=== PATIENT | female | born 1950 | race Caucasian/White ===

== ENCOUNTER → 2017-01-03 | Outpatient (CLI) | payer MEDICARE ==
[2017-01-03 08:56] LABS: Basophils % (A) 0 %; CH 31.4; CHCM 32.1; Eosinophils % (A) 0 %; HCT 37.2 % (34.0-46.0); HDW 2.38; HGB 11.9 gm/dL (11.4-16.0); Luc # (Auto) 0.06; Luc % (Auto) 1; Lymphocytes # (A) 0.8 k/uL (1.0-4.8); Lymphocytes % (A) 18 %; MCH 31.2 pg (25.0-35.0); MCHC 31.9 g/dL (31.0-37.0); MCV 98.1 fL (80.0-100.0); Monocytes # (A) 0.2 k/uL (0-1.0); Monocytes % (A) 4 %; Neutrophils # (A) 3.6 k/uL (1.3-7.7); Neutrophils % (A) 76 %; RDW 13.8 % (11.5-15.5); WBC 4.7 k/uL (3.8-10.6); WBC (Perox) 4.74
--- NOTE | 2017-01-03 09:01 | CT ---
EXAMINATION TYPE: CT chest wo con DATE OF EXAM: 01/03/2017 8:26 AM COMPARISON: CTA chest September 24, 2012 HISTORY: Difficulty breathing CT DLP: 998 mGycm. Automated Exposure Control for Dose Reduction was Utilized. TECHNIQUE: CT scan of the thorax is performed without IV contrast. High resolution protocol with 10 mm sequences obtained in supine and prone technique FINDINGS: LUNGS: The lungs are predominantly clear, there is no concerning parenchymal mass or greater than 1 c m nodule identified. Some linear scarring in the left lung base is present. No significant periphera l reticulation or fibrosis is seen. No honeycombing is evident. There is no pleural effusion or pneum othorax seen bilaterally. No bronchiectasis is seen. MEDIASTINUM: Lack of IV contrast is noted to limit evaluation for mediastinal and especially hilar ad enopathy. There are no definitive greater than 1 cm hilar or mediastinal lymph nodes. No pericardia l effusion is seen. Heart size is mildly enlarged. There is mild calcified atherosclerotic change in the aortic arch. OTHER: Visualized liver is hypodense consistent with fatty infiltration. There is multilevel spurring in the thoracic spine present. IMPRESSION: No significant acute or chronic pulmonary process.
== END | disposition home or self-care (01) ==
LOC: RADCTMAIN 07:49
PROVIDERS: ATTEND Internal Medicine Critical Care Medicine
DX: J84.9 Interstitial pulmonary disease, unspecified (principal)
CPT/HCPCS: 71250; 82785; 85025; 86160; 86161

== ENCOUNTER → 2018-08-15 | Outpatient (CLI) | payer MEDICARE ==
--- NOTE | 2018-08-16 11:18 | BD ---
EXAMINATION TYPE: Axial Bone Density DATE OF EXAM: 08/15/2018 COMPARISON: Prior DEXA bone scan July 14, 2015 CLINICAL HISTORY: Disorder of bone per order. Height: 63 Weight: 238.4 FRAX RISK QUESTIONS: Alcohol (3 or more units per day): no Family History (Parent hip fracture): no Glucocorticoids (More than 3mos): no (Ex: prednisone, prednisolone, methylprednisolone, dexamethasone, and hydrocortisone). History of Fracture in Adulthood: no Secondary Osteoporosis: 1. Type 1 Diabetes: no 2. Hyperthyroidism: no 3. Menopause before 45: no 4. Malnutrition: no 5. Chronic liver disease: no Rheumatoid Arthritis: no Current Tobacco Use: no RISK FACTORS HISTORY OF: Family History of Osteoporosis: no Active: sometimes Diet low in dairy products/other sources of calcium: no Postmenopausal woman: age55 Lost more than 2 inches in height since high school: no MEDICATIONS: Thyroid Medications: thyroid, bp meds, vitamins, tumeric How Lon years Additional History: EXAM MEASUREMENTS: Bone mineral densitometry was performed using the [employer] System. Bone mineral density as measured about the Lumbar spine is: ----- L1-L4(G/cm2): 1.360 T Score Values are as follows: ----- L2: 1.6 ----- L3: 1.6 ----- L4: 1.0 ----- L1-L4: 1.5 Bone mineral density has: decreased -3.3 % since study of: 07.14.2015 Bone mineral density about the R hip (g/cm2): 1.273 Bone mineral density about the L hip (g/cm2): 1.267 T Score values are as follows: -----R Neck: 1.7 -----L Neck: 1.7 -----R Total: 3.5 -----L Total: 3.5 Bone mineral density has: decreased -0.3 % since study of: 07.14.2015 IMPRESSION: Normal (Values between +1 and -1 indicate normal bone mass). Consider repeating this study in 5 year s or sooner if there is some new clinical indication. NOTE: T-SCORE=SD OF THE YOUNG ADULT MEAN.
--- NOTE | 2018-08-19 14:49 | MM ---
Reason for exam: screening (asymptomatic). Last mammogram was performed 3 years and 1 month ago. History: Patient is postmenopausal and had first child at age 33. Family history of breast cancer in cousin at age 52. MG Screening Mammo w CAD Bilateral CC and MLO view(s) were taken. Prior study comparison: July 14, 2015, bilateral MG screening mammo w CAD. December 01, 2010, bilateral digital screening mammo w/CAD. There are scattered fibroglandular densities. No significant changes when compared with prior studies. ASSESSMENT: Negative, BI-RAD 1 RECOMMENDATION: Routine screening mammogram of both breasts in 1 year.
== END ==
LOC: RADMAMWWP 14:22
PROVIDERS: ATTEND Family Medicine
DX: Z12.31 Encounter for screening mammogram for malignant neoplasm of breast (principal); M89.9 Disorder of bone, unspecified
CPT/HCPCS: 77067; 77080

== ENCOUNTER → 2019-08-16 | Outpatient (CLI) | payer MEDICARE ==
--- NOTE | 2019-08-16 14:10 | MM ---
Reason for exam: screening (asymptomatic). Last mammogram was performed 1 year ago. History: Patient is postmenopausal and had first child at age 33. Family history of breast cancer in cousin at age 52. Physical Findings: A clinical breast exam by your physician is recommended on an annual basis and results should be correlated with mammographic findings. MG Screening Mammo w CAD Bilateral CC and MLO view(s) were taken. Prior study comparison: August 15, 2018, bilateral MG screening mammo w CAD. July 14, 2015, bilateral MG screening mammo w CAD. There are scattered fibroglandular densities. There are benign appearing round vascular calcifications bilaterally. There is no discrete abnormality. ASSESSMENT: Benign, BI-RAD 2 RECOMMENDATION: Routine screening mammogram of both breasts in 1 year.
== END | disposition home or self-care (01) ==
LOC: RADMAMWWP 09:51
PROVIDERS: ATTEND Family Medicine
DX: Z12.31 Encounter for screening mammogram for malignant neoplasm of breast (principal)
CPT/HCPCS: 77067

== ENCOUNTER → 2020-03-05 | Outpatient (CLI) | payer MEDICARE ==
[2020-03-05 14:49] LABS: Basophils % (A) 1 %; Eosinophils # (A) 0.1 k/uL (0-0.7); Eosinophils % (A) 3 %; HCT 37.4 % (34.0-46.0); HGB 11.6 gm/dL (11.4-16.0); Lymphocytes # (A) 1.4 k/uL (1.0-4.8); Lymphocytes % (A) 26 %; MCH 31.3 pg (25.0-35.0); MCHC 31.1 g/dL (31.0-37.0); MCV 100.7 fL (80.0-100.0); Macrocytosis Slight; Mean Platelet Volume 9.1; Monocytes # (A) 0.4 k/uL (0-1.0); Monocytes % (A) 7 %; Neutrophils # (A) 3.4 k/uL (1.3-7.7); Neutrophils % (A) 63 %; Platelet Count 193 k/uL (150-450); RBC 3.71 m/uL (3.80-5.40); WBC 5.5 k/uL (3.8-10.6)
[2020-03-05 17:52] LABS: INR 0.97 (0.90-1.11); Partial Thromboplastin Time 26.7 sec (24.7-29.9); Prothrombin Time 10.4 sec (9.9-11.9)
[2020-03-05 18:49] LABS: African American GFR (CKD) 44.3 (60.0-200.0); Albumin 4.4 g/dL (3.80-4.90); Albumin/Globulin Ratio 1.91 (1.60-3.17); Anion Gap 10.9 mmol/L (4.00-12.00); BUN/Creat Ratio 17.86 Ratio (12.00-20.00); Carbon Dioxide 28.1 mmol/L (21.6-31.8); Globulin 2.3 g/dL (1.6-3.3); Non-African American GFR(CKD) 38.2 (60.0-200.0); Potassium 4.6 mmol/L (3.5-5.5); Total Bilirubin 0.5 mg/dL (0.3-1.2); Total Protein 6.7 g/dL (6.2-8.2)
== END | disposition home or self-care (01) ==
LOC: LABWHC1 13:54
PROVIDERS: ATTEND Family Medicine
DX: I12.9 Hypertensive chronic kidney disease with stage 1 through stage 4 chronic kidney disease, or unspecified chronic kidney disease (principal); D63.1 Anemia in chronic kidney disease; N18.3 Chronic kidney disease, stage 3 (moderate)
CPT/HCPCS: 36415; 80053; 85025; 85610; 85730; 93005

== ENCOUNTER → 2020-10-02 | Outpatient (CLI) | payer MEDICARE ==
--- NOTE | 2020-10-06 09:01 | MM ---
Reason for exam: screening (asymptomatic). Last mammogram was performed 1 year and 2 months ago. History: Patient is postmenopausal and had first child at age 33. Family history of breast cancer in cousin at age 52. Took hormonal contraceptives for 20 years. Physical Findings: A clinical breast exam by your physician is recommended on an annual basis and results should be correlated with mammographic findings. MG Screening Mammo w CAD Bilateral CC and MLO view(s) were taken. Prior study comparison: August 16, 2019, bilateral MG screening mammo w CAD. August 15, 2018, bilateral MG screening mammo w CAD. There are scattered fibroglandular densities. Vascular calcifications on the right breast. No significant changes when compared with prior studies. ASSESSMENT: Benign, BI-RAD 2 RECOMMENDATION: Routine screening mammogram of both breasts in 1 year.
== END | disposition home or self-care (01) ==
LOC: RADMAMWWP 13:26
PROVIDERS: ATTEND Family Medicine
DX: Z12.31 Encounter for screening mammogram for malignant neoplasm of breast (principal)
CPT/HCPCS: 77067

== ENCOUNTER → 2021-04-15 | Outpatient (CLI) | payer MEDICARE ==
[2021-04-15 11:20] LABS: HCT 37.9 % (34.0-46.0); HGB 12.9 gm/dL (11.4-16.0); MCH 34.3 pg (25.0-35.0); Macrocytosis Slight; Mean Platelet Volume 9.2; Platelet Count 149 k/uL (150-450); RBC 3.75 m/uL (3.80-5.40); RDW 13.6 % (11.5-15.5); WBC 5.9 k/uL (3.8-10.6)
[2021-04-15 11:31] LABS: Partial Thromboplastin Time 23.5 sec (22.0-30.0); Prothrombin Time 10.6 sec (9.0-12.0)
[2021-04-15 11:33] LABS: Albumin 4.1 g/dL (3.5-5.0); Calcium 10.1 mg/dL (8.4-10.2); Potassium 5.3 mmol/L (3.5-5.1); Total Bilirubin 0.5 mg/dL (0.2-1.3); Total Protein 7.1 g/dL (6.3-8.2)
[2021-04-15 11:38] LABS: Appearance,Urine Cloudy (Clear); Bacteria,Urine Few /hpf; Bilirubin,Urine Negative (Negative); Blood,Urine Negative (Negative); Color,Urine Light Yellow; Glucose,Urine (UA) 1+ (Negative); Ketones,Urine Negative (Negative); Leukocyte Esterase,Urine Negative (Negative); Mucus,Urine Rare /hpf; Nitrite,Urine Negative (Negative); Protein,Urine Negative (Negative); Specific Gravity,Urine 1.011 (1.001-1.035); Squamous Epithelial Cell,Urine 2 /hpf (0-4); Urobilinogen,Urine <2.0 mg/dL (<2.0); WBC,Urine 4 /hpf (0-5)
== END | disposition home or self-care (01) ==
LOC: LABPAT 10:17
PROVIDERS: ATTEND Orthopaedic Surgery
DX: Z01.812 Encounter for preprocedural laboratory examination (principal); Z01.810 Encounter for preprocedural cardiovascular examination
CPT/HCPCS: 80053; 81001; 85027; 85610; 85730; 87070; 93005

== ENCOUNTER 2021-05-03 05:34 | Day surgery (SDC) | payer MEDICARE ==
[2021-04-29 10:34] VITALS: BMI 47.5
[~2021-05-03 05:34] MED LIST: ACETAMINOPHEN TAB 500 MG TAB PO PRN; GABAPENTIN 300 MG CAP PO PRN; TRANEXAMIC ACID 1,000 MG in SODIUM CHLORIDE 0.9% 100 ML IVPB PRN; VANCOMYCIN 1,750 MG in SODIUM CHLORIDE 0.9% 500 ML 500 ML IVPB PRN
[2021-05-03] MEDS ORDERED: DEXAMETHASONE SOD PHOSPHATE 4 MG/ML 1 ML VIAL IV ONE (05:50)
[2021-05-03] MEDS ORDERED: LIDOCAINE 1% (10MG/ML) FOR IV START INTRADERMA PRN (05:50)
[2021-05-03] MEDS ORDERED: MIDAZOLAM 2 MG/2 ML VIAL IV PRN (05:50)
[2021-05-03] MEDS ORDERED: ONDANSETRON 4 MG/2 ML VIAL IVP ONE (05:50)
[2021-05-03 06:18] LABS: Glucose,Whole Blood 107 mg/dL (75-99)
[2021-05-03] MEDS: LACTATED RINGERS 1,000 ML IV SCH ×2 (06:45→07:06)
[2021-05-03] MEDS ORDERED: HYDROmorphone 0.5 MG/0.5 ML SYRINGE IVP PRN ×2 (07:03)
[2021-05-03] MEDS ORDERED: ONDANSETRON 4 MG/2 ML VIAL IVP PRN (07:03)
[2021-05-03] MEDS ORDERED: HYDROmorphone 0.2 MG/1 ML SYRINGE IVP PRN (07:03)
[2021-05-03] MEDS ORDERED: NALOXONE 0.4 MG/ML 1 ML VIAL IV PRN (07:03)
[2021-05-03] MEDS ORDERED: LIDOCAINE 1% INJ 10MG/ML (20 ML MDV) ONE (07:04)
[2021-05-03] MEDS ORDERED: KETAMINE 10 MG/ML 20 ML VIAL ONE (07:04)
[2021-05-03] MEDS ORDERED: SODIUM CHLORIDE 0.9% 100 ML BAG ONE (07:04)
[2021-05-03] MEDS ORDERED: LABETALOL 5 MG/ML VIAL MDV ONE (07:04)
[2021-05-03] MEDS ORDERED: TRANEXAMIC ACID 1,000 MG/10 ML VIAL ONE (07:04)
[2021-05-03] MEDS ORDERED: MIDAZOLAM 2 MG/2 ML VIAL ONE (07:04)
[2021-05-03] MEDS ORDERED: SUCCINYLCHOLINE CHLORIDE 100 MG/5 ML SYR IV ONE (07:04)
[2021-05-03] MEDS ORDERED: ROPIVACAINE 5 MG/ML 30 ML VIAL ONE (07:04)
[2021-05-03] MEDS ORDERED: fentaNYL (PF) 50 MCG/ML 2 ML AMP ONE (07:04)
[2021-05-03] MEDS ORDERED: PROPOFOL 10 MG/ML 20 ML VIAL IV ONE (07:04)
[2021-05-03] MEDS ORDERED: CLINDAMYCIN 900 MG in DEXTROSE 5% IN WATER 50 ML IVPB SCH ×2 (07:15)
[2021-05-03] MEDS ORDERED: SODIUM CHLORIDE 0.9% 1,000 ML IV SCH (07:15)
--- NOTE | 2021-05-03 07:56 | P.ANPRN ---
Procedure Note - Anesthesia - Nerve Block Performed Left Adductor Canal Infusion Time Out Performed: Yes Date of Procedure: 05/03/21 Procedure Start Time: 06:34 Procedure Stop Time: 06:54 Location of Patient: PreOp Indication: Acute Post-Operative Pain, Dx/Pain Location, Requested by Surgeon Specifically requested for management of pain by : Edi Smith Sedation Type: Sedate with meaningful contact maintained Preparation: Sterile Prep, Sterile Dressing Position: Supine Catheter Depth at Skin (cm): 7 Catheter: Indwelling Needle Types: Pajunk Needle Gauge: 21 Ultrasound used to visualize needle placement: Yes Ultrasound used to observe medication spread: Yes Injectate: 0.5% Ropivacaine (see comment for volume) Blood Aspirated: No Pain Paresthesia on Injection Noted: No Resistance on Injection: Normal Image Stored and Saved: Yes Events: Uneventful and Well Tolerated (0.5% ropivacaine 20 cc)
--- NOTE | 2021-05-03 07:57 | P.ANPRN ---
Procedure Note - Anesthesia - Nerve Block Performed Left iPack Single Time Out Performed: Yes Date of Procedure: 05/03/21 Procedure Start Time: 06:55 Procedure Stop Time: 06:59 Location of Patient: PreOp Indication: Acute Post-Operative Pain, Dx/Pain Location, Requested by Surgeon Specifically requested for management of pain by DrMagdalene: Edi Smith Sedation Type: Sedate with meaningful contact maintained Preparation: Sterile Prep Position: Supine Catheter: None Needle Types: Ohm Universe Needle Gauge: 21 Ultrasound used to visualize needle placement: Yes Ultrasound used to observe medication spread: Yes Injectate: 0.5% Ropivacaine (see comment for volume) Blood Aspirated: No Pain Paresthesia on Injection Noted: No Resistance on Injection: Normal Image Stored and Saved: Yes Events: Uneventful and Well Tolerated (0.5% ropivacaine 10cc)
--- NOTE | 2021-05-03 08:30 | P.OP ---
Date of Procedure: 05/03/21 Preoperative Diagnosis: Severe osteoarthritis left knee Postoperative Diagnosis: Severe osteoarthritis left knee Procedure(s) Performed: Left total knee arthroplasty Implants: Márquez [employer] Nephew Journey II CR Oxinium cruciate retaining femoral component size 5, left Már[employer] Journey nonporous tibial baseplate size 3, left Már[employer] Journey II, XLPE Deep Dished articular insert, size 9 mm, Size 3- 4, left [employer]ár[employer] Journey Loren II resurfacing patellar component, oval, 29 mm All components were cemented using Palacos R bone cement The articulation is Oxinium on polyethylene Anesthesia: DORENE Surgeon: Tex Smith Rock Room Worker #1: Joleen Andersen Estimated Blood Loss (ml): 50 Pathology: other (Bone and cartilage) Condition: stable Disposition: PACU Indications for Procedure: After failure of conservative treatment we discussed the surgical and nonsurgical treatment options at length. Patient wishes to proceed with a total knee arthroplasty. Complications specific to this procedure were discussed at length, including but not limited to infection, bleeding, stiffness, and nerve injury. Covid-19 was also discussed at length with the patient, and they are aware of the current policies and procedures. The patient was given the option of delaying surgery, but they elect to proceed knowing these risks. Patient is aware of all these complications and informed consent was obtained Operative Findings: The operative findings are consistent with severe osteoarthritis the left knee Description of Procedure: Patient was seen in the preoperative area and the consent was reviewed and the operative site was marked with a skin marker. The patient verified the procedure and the operative site. An adductor canal pain catheter and an iPACK block was placed by anesthesia in the preoperative area. The patient was then brought to the operating room and given preoperative antibiotics intravenously. A gram of transexamic acid was given intravenously. A general anesthetic was administered by the anesthesia department. A tourniquet was placed on the upper thigh and the lower extremity was prepped with chlorhexidine and draped in usual sterile fashion. A universal timeout was then performed which confirmed the patient's name, surgical site, ALLERGIES, and consent. The lower extremity was then exsanguinated and tourniquet was inflated to 300 mmHg. A standard anterior midline approach to the knee was performed. The skin and subcutaneous tissue were sharply dissected down to the patellar tendon. A medial parapatellar arthrotomy was then performed. The knee was then extended, the patellar was everted, and the knee was again flexed. The infra-patellar fat pad was removed in order to enhance exposure. The anterior horns of both menisci were excised, and a release was performed to the posterior medial aspect of the knee. On gross visual inspection, there was complete loss of articular cartilage in the medial and patellofemoral joint spaces. There was also significant cartilage damage in the lateral compartment. There were multiple periarticular osteophytes globally about the knee which were then removed with a Ronguer. The femoral canal was then opened with the 9.5 mm intramedullary drill. The 8 mm intramedullary leslie was then inserted into the femoral canal with the distal femoral cutting guide set for 5 of valgus. The distal femoral cutting block was then pinned in place. The intramedullary leslie was then removed, and the distal femur was then cut. The cutting block was then removed and the cut was checked for symmetry. The resected bone was then measured to confirm the appropriate distal femoral resection. Next, the sizing guide was then placed and set for 3 external rotation based off of the epicondylar axis and Whitesides line. Pins were then placed and the drill holes, and the femur was sized with the sizing stylus. The pins were then removed, and the sizing guide was then removed. The spikes of the femoral block was then placed into the predrilled holes, and malleted into place. Two 45 mm pins were then placed into the fixation holes on the cutting block. An devon wing was then used to ensure there would be no notching with the anterior cut. The anterior condyles were cut without notching. The anterior chord cut was then performed, followed by the posterior cut, posterior chamfer cut, and the anterior chamfer cut. The collateral ligaments were protected during the entire process. The cutting block was then removed. Any remaining bone and osteophytes were removed from the femur with a Rominger. The femoral canal was plugged with autologous bone. Attention was then directed to the tibia. The remaining ACL was removed with a Ronguer, and the tibia was then gently subluxed forward with a large bent knee retractor. Any remaining menisci were excised. The posterior lateral corner was cauterized in order to coagulate the lateral geniculate artery. The extra medullary tibial cutting guide was then placed, set for the appropriate rotation, slope, and depth of resection. The proximal tibia cutting guide was then pinned in place. Proximal tibia was then cut and sized. The femoral trial was placed. A narrow saw blade was then used to remove the anterior intracondylar femoral bone. The CR notch trial was then placed. The tibial trial was placed with the appropriate-sized insert. The knee was able to fully extend and flex to 130 and was stable throughout all range of motion. The knee was then extended and the patella was everted. Patella was then measured, and then using an osteotomy guide, the patella was cut at the appropriate level. The patella was then measured and drilled and the patella trial was then placed. The knee was then taken through range of motion with the patella trial and the patella tracked normally using the no thumbs technique.. The knee was then extended patella trial was then removed and the patella was everted. Knee was then flexed and lug holes were drilled through the femoral trial and the femoral trial was then removed. The tibial was then re-exposed, and the tibial broach guide was then pinned in place after it was set for the appropriate rotation to allow for the most coverage without overhang. The tibia was then reamed and broached. The cut surfaces of bone were then irrigated with pulsatile lavage. The knee was also irrigated with Irrisept solution. The components were then opened, the cement was mixed, and the components were then cemented in place. The cement was allowed to harden with the knee in full extension. After the cemented hardened. The tourniquet was released, and hemostasis was obtained. A second gram of transexamic acid was given intravenously. The knee was again irrigated. The knee was again taken through range of motion and found to be stable throughout all range of motion of 0-130, and the patella tracked normally. The fascia was then closed with 0 Vicryl followed by #2 strata fix suture. The subcutaneous tissue was closed with 3-0 Vicryl and 3-0 strata fix. Exofin glue was used for the skin and placed with the knee in flexion. After the glue had dried, and Optafoam silver impregnated dressing was applied. The patient was then transferred to recovery room in stable condition. The property management assistant MICHAEL Last was required due the complexity surgery and the need for a skilled surgical device sales representative. She assisted in positioning, draping, retraction, and closure of the wound.
[2021-05-03] MEDS: HYDROmorphone 0.5 MG/0.5 ML SYRINGE IVP PRN ×3 (09:03→09:34)
[2021-05-03] MEDS ORDERED: ROPIVACAINE 0.2%-NS ON-Q PUMP 2 MG/ML EACH MISCELLANE ONE (09:10)
[2021-05-03 09:16] VITALS: TEMP 98.4
--- NOTE | 2021-05-03 09:21 | XR ---
EXAMINATION TYPE: XR knee limited LT DATE OF EXAM: 05/03/2021 CLINICAL HISTORY: Left knee pain and arthritis status post total knee replacement. TECHNIQUE: Portable AP and crosstable lateral views of the left knee are obtained immediately postop eratively. COMPARISON: None FINDINGS: Metallic hardware from total left knee arthroplasty is seen and appears satisfactory in al ignment and position. There is evidence of recent surgery with diffuse subcutaneous gas and soft tis kitty swelling noted. IMPRESSION: METALLIC HARDWARE FROM TOTAL LEFT KNEE ARTHROPLASTY IS SATISFACTORY IN ALIGNMENT.
[2021-05-03] MEDS ORDERED: ROPIVACAINE 0.2%-NS ON-Q PUMP 1,090 MG, EMPTY PAIN BALL 1 EACH MISCELLANE PRN (09:25)
[2021-05-03] MEDS ORDERED: HYDROcodone/APAP 7.5-325MG 1 EACH TAB PO PRN ×2 (09:28)
[2021-05-03 09:40] LABS: Glucose,Whole Blood 133 mg/dL (75-99)
[2021-05-03 13:32] VITALS: BP 111/61; PULSE 80; RESP 18
== END 2021-05-03 13:51 | disposition home health service (06) ==
LOC: OR 05:34
PROVIDERS: ATTEND Orthopaedic Surgery
DX: M17.12 Unilateral primary osteoarthritis, left knee (principal); M19.90 Unspecified osteoarthritis, unspecified site; Z91.040 Latex allergy status; Z88.8 Allergy status to other drugs, medicaments and biological substances
CPT/HCPCS: 27447; 97110; 97161; 64999; 64448; 76942; 84132; 88300; 73560; C1713; C1776; J2250; J3370; J1100; J2405; J2001; J3010; J2795 ×2; J0330; J2704; J1170

== ENCOUNTER → 2023-04-04 | Outpatient (CLI) | payer MEDICARE ==
--- NOTE | 2023-04-05 10:09 | MM ---
Reason for Exam: Screening (asymptomatic). Last mammogram was performed 1 year(s) and 3 month(s) ago. Patient History: Menarche at age 13. First Full-Term at age 33. Late child-bearing (after 30). Hysterectomy at age 51. Postmenopausal. Patient used Hormonal Contraceptives for 20 year. Paternal cousin had breast cancer, age 52. Risk Values: Aarti 5 year model risk: 2.4%. NCI Lifetime model risk: 6.3%. Prior Study Comparison: 08/16/2019 Bilateral Screening Mammogram, [facility]. 10/02/2020 Bilateral Screening Mammogram, [facility]. 12/22/2021 Bilateral MG screening mammo w CAD, [facility]. Tissue Density: There are scattered fibroglandular densities. Findings: Analyzed By CAD. There is no suspicious group of microcalcifications or new suspicious mass in either breast. Benign vascular calcifications on the right. Superficial prominent veins on the left. Overall Assessment: Benign, BI-RAD 2 Management: Screening Mammogram of both breasts in 1 year. A clinical breast exam by your physician is recommended on an annual basis and results should be correlated with mammographic findings. Note on Aarti scores and lifetime risk: 1. A Aarti score greater than 3% is considered moderate risk. If this is the case, consider specialist referral to assess eligibility for a risk reducing agent. If overall lifetime risk for the development of breast cancer is 20% or higher, the patient may qualify for future screening with alternating mammogram and breast MRI. Electronically signed and approved by: Dajuan Harper D.O.
== END | disposition home or self-care (01) ==
LOC: RADMAMWWP 15:45
PROVIDERS: ATTEND Family Medicine
DX: Z12.31 Encounter for screening mammogram for malignant neoplasm of breast (principal); Z78.0 Asymptomatic menopausal state; Z80.3 Family history of malignant neoplasm of breast
CPT/HCPCS: 77067

== ENCOUNTER → 2024-05-24 | Outpatient (CLI) | payer MEDICARE ==
--- NOTE | 2024-05-28 09:53 | MM ---
Reason for Exam: Screening (asymptomatic). Last mammogram was performed 1 year(s) and 2 month(s) ago. Patient History: Menarche at age 13. First Full-Term at age 33. Late child-bearing (after 30). Hysterectomy at age 51. Postmenopausal. Patient used Hormonal Contraceptives for 20 years. Paternal cousin had breast cancer, age 52. Risk Values: Aarti 5 year model risk: 2.4%. NCI Lifetime model risk: 5.9%. Prior Study Comparison: 10/02/2020 Bilateral Screening Mammogram, [facility]. 12/22/2021 Bilateral MG screening mammo w CAD, [facility]. 04/04/2023 Bilateral MG screening mammo w CAD, [facility]. Tissue Density: There are scattered areas of fibroglandular density. Findings: Analyzed By CAD. There is no suspicious group of microcalcifications or new suspicious mass in either breast. Overall Assessment: Benign, BI-RAD 2 Management: Screening Mammogram of both breasts in 1 year. . Patient should continue monthly self-breast exams. A clinical breast exam by your physician is recommended on an annual basis. This exam should not preclude additional follow-up of suspicious palpable abnormalities. Note on Aarti scores and lifetime risk: 1. A Aarti score greater than 3% is considered moderate risk. If this is the case, consider specialist referral to assess eligibility for a risk reducing agent. 2. If overall lifetime risk for the development of breast cancer is 20% or higher, the patient may qualify for future screening with alternating mammogram and breast MRI. [facility], , 05/28/2024 9:50 AM. Electronically signed and approved by: Alphonse Xiong M.D. Radiologis
== END | disposition home or self-care (01) ==
LOC: RADMAMWWP 10:17
PROVIDERS: ATTEND Family Medicine
DX: Z12.31 Encounter for screening mammogram for malignant neoplasm of breast
CPT/HCPCS: 77067

== ENCOUNTER 2025-02-26 07:54 | Day surgery (SDC) | payer MEDICARE ==
[2025-02-24 15:44] VITALS: BMI 39.6
[2025-02-26 08:15] VITALS: TEMP 98.1
[2025-02-26 08:30] LABS: Glucose,Whole Blood 92 mg/dL (70-110)
[2025-02-26] MEDS: LACTATED RINGERS 1,000 ML IV SCH (08:31)
[2025-02-26] MEDS: IV FLUID CONTINUATION 1,000 ML IV ONE (08:33)
[2025-02-26] MEDS ORDERED: PROPOFOL 10 MG/ML 20 ML VIAL IV ONE (09:05)
--- NOTE | 2025-02-26 09:20 | P.PCN ---
Date of Procedure: 02/26/25 Procedure(s) Performed: BRIEF HISTORY: Patient is a 74-year-old pleasant white female scheduled for an elective colonoscopy as a part of screening for prior history of colon polyps. Last colonoscopy was 3 years ago and was noted to have a tubular adenoma. PROCEDURE PERFORMED: Colonoscopy with snare polypectomy. PREOPERATIVE DIAGNOSIS: Screening for history of colon polyps. IV sedation per Anesthesia. PROCEDURE: After informed consent was obtained, the patient, was brought into the endoscopy unit. IV sedation was administered by Anesthesia under continuous monitoring. Digital rectal examination was normal. Initially the Olympus CF-160 flexible video colonoscope was then inserted in the rectum, gradually advanced into the cecum without any difficulty. Careful examination was performed as the scope was gradually being withdrawn. Ileocecal valve and the appendiceal orifice were visualized and appeared normal. Prep was excellent. Mucosa of the cecum, ascending colon, appeared normal. The hepatic flexure there was a 1 cm polyp removed by hot snare polypectomy. Rest of the transverse colon, descending colon, sigmoid colon, and rectum appeared normal. Scattered sigmoid diverticulosis. Retroflexion was performed in the rectum and no lesions were seen. The patient tolerated the procedure well. IMPRESSION: 1 cm hepatic flexure polyp status post hot snare polypectomy Scattered sigmoid diverticulosis RECOMMENDATIONS: Findings of this examination were discussed with the patient as well as his family. She was advised to follow the biopsy results. If the biopsy reveals adenoma she can have repeat colonoscopy in 3 years..
[2025-02-26 09:30] VITALS: PULSE 62
[2025-02-26 09:41] VITALS: BP 114/66; RESP 16
== END 2025-02-26 10:09 | disposition home or self-care (01) ==
LOC: ORWHC2ENDO 07:54
PROVIDERS: ATTEND Internal Medicine Gastroenterology
DX: Z12.11 Encounter for screening for malignant neoplasm of colon (principal); D12.3 Benign neoplasm of transverse colon; K57.30 Diverticulosis of large intestine without perforation or abscess without bleeding; Z86.0101 Personal history of adenomatous and serrated colon polyps; I10 Essential (primary) hypertension; J45.909 Unspecified asthma, uncomplicated; E78.5 Hyperlipidemia, unspecified; E11.9 Type 2 diabetes mellitus without complications; G47.33 Obstructive sleep apnea (adult) (pediatric); Z79.899 Other long term (current) drug therapy; Z98.890 Other specified postprocedural states; Z79.890 Hormone replacement therapy; Z79.85 Long-term (current) use of injectable non-insulin antidiabetic drugs; Z91.040 Latex allergy status; Z88.8 Allergy status to other drugs, medicaments and biological substances; Z88.1 Allergy status to other antibiotic agents; Z88.6 Allergy status to analgesic agent
CPT/HCPCS: 45385; J2704; 88305